=== PATIENT | female | born 1995 | race Asian ===

== ENCOUNTER 2016-12-03 13:26 | Emergency (ER) | payer OTHER ==
[~2016-12-03] VITALS: Ht 162.6 cm; Wt 62.1 kg
[2016-12-03 13:29] VITALS: TEMP 36.7; Ht 162.6 cm; Wt 62.1 kg
[2016-12-03] MEDS ORDERED: SODIUM CHLORIDE 0.9% 1000ML 1,000 ML IV STA (13:44)
[2016-12-03] MEDS ORDERED: MoRPHine SULFATE 4 MG/ML 1 ML CARP\\VIAL IV STA (13:44)
[2016-12-03] MEDS ORDERED: ONDANSETRON INJ 2 MG/ML 2 ML VIAL IV STA (13:44)
--- NOTE | 2016-12-03 14:10 | EMERGENCY ROOM VISIT NOTE ---
History First contact with patient: 13:34 Chief Complaint: ABDOMINAL PAIN Stated Complaint: PAIN IN LWR ABD./BACK PAIN WHEN SITTING History of Present Illness The patient is a 21 year old female who presents to the Emergency Room with complaints of pain in her lower abdomen which started this morning. She reports that after eating breakfast this morning, she experienced abdominal cramping which was severe for approximately 30 minutes. She reports that she took Excedrin with little relief. She states that the pain is now located in her lower abdomen, mostly on the right side. The pain is worse when she is walking, laughing or moving. She states she is currently finishing her menstrual period. She rates the discomfort a 10/10. She denies any urinary symptoms, nausea, vomiting or changes in bowel movements. She denies any history of abdominal surgery. Review of Systems A complete 10-point Review of Systems was discussed with the patient, with pertinent positives and negatives listed in the History of Present Illness. All remaining Review of Systems questions can be considered negative unless otherwise specified. Social History Smoking Status: Never Smoker Current/Historical Medications No Active Prescriptions or Reported Meds Allergies Coded Allergies: No Known Allergies (Unverified , 12/03/16) Physical Exam Vital Signs Date Time Temp Pulse Resp B/P Pulse Ox O2 Delivery O2 Flow Rate FiO2 12/03/16 18:14 63 18 127/80 100 12/03/16 16:58 62 18 125/82 100 Room Air 12/03/16 15:03 71 18 113/79 99 Room Air 12/03/16 13:29 36.7 63 18 121/75 100 Room Air Physical Exam VITALS: Vitals are noted on the nurse's note and reviewed by myself. Vital signs stable. GENERAL: This is a 21-year-old female, in no acute distress, nondiaphoretic, well-developed well-nourished. SKIN: Capillary reflex less than 2 seconds. HEENT: Normocephalic. PERRLA. EOMI. Nares patent. Mucous membranes moist. Neck is supple without nuchal rigidity. HEART: Regular rate and rhythm without murmurs gallops or rubs. LUNGS: Clear to auscultation bilaterally without wheezes, rales or rhonchi. ABDOMEN: The abdomen is nondistended with normal abdominal contour. Positive bowel sounds x 4. The abdomen is soft with moderate tenderness of the right lower quadrant. Positive Rovsing sign. No guarding or rebound tenderness. NEURO: Patient was alert and oriented to person place and time. Medical Decision & Procedures ER Provider Diagnostic Interpretation: ULTRASOUND OF THE APPENDIX FINDINGS: Real-time, grayscale, and color flow sonography of the right lower quadrant was performed to assess for acute appendicitis. The appendix was not discretely visualized. No inflammatory changes or free fluid are seen in the right lower quadrant. No lymphadenopathy was seen. IMPRESSION: Nonvisualization of the appendix. Note that this does not exclude acute appendicitis. CT OF THE ABDOMEN AND PELVIS WITH CONTRAST FINDINGS: There is no pneumatosis, free air or portal venous gas. The liver, spleen, adrenal glands, kidneys and pancreas are normal. There is no biliary or pancreatic ductal dilatation. There is no hydronephrosis. The caliber and wall thickness of small and large bowel are normal. The appendix is normal. There is a small amount of fluid within the pelvis. There is no evidence for a bowel obstruction. No lymphadenopathy is present. Skeletal structures are unremarkable. IMPRESSION: 1. Normal appendix. 2. Small amount of fluid within the pelvis. 3. No bowel obstruction. Laboratory Results 12/03/16 14:28 Red Blood Count 4.62, Mean Corpuscular Volume 91.1, Mean Corpuscular Hemoglobin 33.1, Mean Corpuscular Hemoglobin Concent 36.3, Mean Platelet Volume 10.6, Neutrophils (%) (Auto) 83.5, Lymphocytes (%) (Auto) 10.0, Monocytes (%) (Auto) 5.4, Eosinophils (%) (Auto) 0.8, Basophils (%) (Auto) 0.1, Neutrophils # (Auto) 10.63, Lymphocytes # (Auto) 1.27, Monocytes # (Auto) 0.68, Eosinophils # (Auto) 0.10, Basophils # (Auto) 0.01 12/03/16 14:28 Test 12/03/16 14:17 12/03/16 14:28 Urine Color YELLOW Urine Appearance CLEAR (CLEAR) Urine pH 6.5 (4.5-7.5) Urine Specific [place] 1.003 (1.000-1.030) Urine Protein NEG (NEG) Urine Glucose (UA) NEG (NEG) Urine Ketones NEG (NEG) Urine Occult Blood TRACE (NEG) Urine Nitrite NEG (NEG) Urine Bilirubin NEG (NEG) Urine Urobilinogen NEG (NEG) Urine Leukocyte Esterase NEG (NEG) Urine WBC (Auto) 1-5 /hpf (0-5) Urine RBC (Auto) 0-4 /hpf (0-4) Urine Hyaline Casts (Auto) 0 /lpf (0-5) Urine Epithelial Cells (Auto) 10-20 /lpf (0-5) Urine Bacteria (Auto) NEG (NEG) Urine Test NEG (NEG) White Blood Count 12.71 K/uL (4.8-10.8) Red Blood Count 4.62 M/uL (4.2-5.4) Hemoglobin 15.3 g/dL (12.0-16.0) Hematocrit 42.1 % (37-47) Mean Corpuscular Volume 91.1 fL (80-100) Mean Corpuscular Hemoglobin 33.1 pg (25-34) Mean Corpuscular Hemoglobin Concent 36.3 g/dl (32-36) Platelet Count 213 K/uL (130-400) Mean Platelet Volume 10.6 fL (7.4-10.4) Neutrophils (%) (Auto) 83.5 % Lymphocytes (%) (Auto) 10.0 % Monocytes (%) (Auto) 5.4 % Eosinophils (%) (Auto) 0.8 % Basophils (%) (Auto) 0.1 % Neutrophils # (Auto) 10.63 K/uL (1.4-6.5) Lymphocytes # (Auto) 1.27 K/uL (1.2-3.4) Monocytes # (Auto) 0.68 K/uL (0.11-0.59) Eosinophils # (Auto) 0.10 K/uL (0-0.5) Basophils # (Auto) 0.01 K/uL (0-0.2) RDW Standard Deviation 43.1 fL (36.4-46.3) RDW Coefficient of Variation 13.0 % (11.5-14.5) Immature Granulocyte % (Auto) 0.2 % Immature Granulocyte # (Auto) 0.02 K/uL (0.00-0.02) Anion Gap 8.0 mmol/L (3-11) Est Creatinine Clear Calc Drug Dose 98.2 ml/min Estimated GFR () 126.1 Estimated GFR (Non- 108.8 BUN/Creatinine Ratio 15.8 (10-20) Calcium Level 8.9 mg/dl (8.5-10.1) Total Bilirubin 0.7 mg/dl (0.2-1) Aspartate Amino Transf (AST/SGOT) 18 U/L (15-37) Alanine Aminotransferase (ALT/SGPT) 25 U/L (12-78) Alkaline Phosphatase 58 U/L (45-117) Total Protein 8.1 gm/dl (6.4-8.2) Albumin 4.1 gm/dl (3.4-5.0) Globulin 4.0 gm/dl (2.5-4.0) Albumin/Globulin Ratio 1.0 (0.9-2) Lipase 164 U/L (73-393) Medications Administered Medications (Trade) Dose Ordered Sig/Ashkan Route Start Time Stop Time Status Last Admin Dose Admin Sodium Chloride (Nss 1000ml) 1,000 ml @ 999 mls/hr Q1H1M STAT IV 12/03/16 13:44 12/03/16 14:44 DC 12/03/16 14:29 999 MLS/HR Ondansetron HCl (Zofran Inj) 4 mg NOW STAT IV 12/03/16 13:44 12/03/16 13:50 DC 12/03/16 14:53 4 MG Morphine Sulfate (MoRPHine SULFATE INJ) 4 mg NOW STAT IV 12/03/16 13:44 12/03/16 13:50 DC 12/03/16 14:54 4 MG Medical Decision Differential diagnosis includes appendicitis, gastroenteritis, colitis, ovarian cyst, ovarian torsion, PID, among others. The patient was evaluated as above. Labs were drawn and IV access was obtained. Imaging studies were performed and read by radiology as above. The patient was medicated with 1 liter normal saline solution, 4 mg Zofran and 4 mg morphine. The patient was reassessed multiple times during their stay in the emergency department and remained in stable condition. The patient is a and 21-year-old female who presents today complaining of right lower quadrant abdominal pain. Labs revealed a mild leukocytosis. No concerning anemia or electrolyte abnormalities. Urinalysis was not suggestive of infection. Urine was negative. CT of the abdomen and pelvis was performed and showed no acute findings within the abdomen. I did discuss performing a pelvic exam with the patient, but she states she is not sexually active and has never had a pelvic exam. Therefore, I am not suspicious of PID. The patient was informed of findings and conservative measures were discussed. She was instructed to follow-up with her primary care provider and return here if she has any worsening of her current condition or new/concerning symptoms. Based on the patient's presentation, lab results, and imaging studies, I feel the patient is stable for outpatient treatment. The patient's case was reviewed with Dr. Molina, ED attending physician, who agreed with my assessment and treatment plan. Discharge instructions were reviewed with the patient. The patient verbalized understanding of my assessment and treatment plan and was discharged home in good condition. Impression Primary Impression: Right lower quadrant abdominal pain Departure Information Dispostion Home / Self-Care Condition GOOD Prescriptions No Active Prescriptions or Reported Meds Referrals No Doctor, Assigned (PCP) [facility] Patient Instructions [facility] Additional Instructions You have been treated in the Emergency Department your Abdominal Pain. Laboratory results and imaging studies have ruled out any emergent causes for your abdominal pain which would warrant admission or surgery. Ibuprofen: Take 600 mg every 6 hours as needed for abdominal pain. This is an [id number] medication. For pain control, you can also use the following emdz-wkz-[id number] medicines (if >12 yo): - Regular strength (325mg/tab) Tylenol (acetaminophen) 2 tabs every 4-6 hours as needed. Do not exceed 12 tablets in a 24 hour period. Avoid taking more than 4 grams (4000 mg) of Tylenol per day. This includes any other sources of acetaminophen you may take on a regular basis. Drink plenty of water and stay well hydrated. Follow-up with [facility] within 2 days for further evaluation of your symptoms. Return to the emergency department if your symptoms persist despite treatment plan outlined above or if the following symptoms occur: Fevers, vomiting, worsening pain or any other new/concerning symptoms.
[2016-12-03 14:46] LABS: BASO % 0.1 %; BASO ABS # 0.01 K/uL (0-0.2); COMPLETE YES; EOS % 0.8 %; HEMATOCRIT 42.1 % (37-47); IG% 0.2 %; LYMPH ABS # 1.27 K/uL (1.2-3.4); MEAN CELL VOLUME 91.1 fL (80-100); MEAN CORPUSCULAR HEMOGLOBIN 33.1 pg (25-34); MEAN CORPUSCULAR HGB CONC 36.3 g/dl (32-36); MEAN PLATELET VOLUME 10.6 fL (7.4-10.4); MONO % 5.4 %; NEUT % 83.5 %; PLATELET COUNT 213 K/uL (130-400); RED BLOOD COUNT 4.62 M/uL (4.2-5.4); WHITE BLOOD COUNT 12.71 K/uL (4.8-10.8)
[2016-12-03 15:08] LABS: BUN/CREATININE RATIO 15.8 (10-20); CALCIUM 8.9 mg/dl (8.5-10.1); CREATININE 0.77 mg/dl (0.60-1.20); POTASSIUM 3.7 mmol/L (3.5-5.1)
[2016-12-03 15:11] LABS: URINE APPEARANCE CLEAR (CLEAR); URINE BILIRUBIN NEG (NEG); URINE COLOR YELLOW; URINE NITRITE NEG (NEG); URINE PH 6.5 (4.5-7.5); URINE SPECIFIC GRAVITY 1.003 (1.000-1.030); UROBILINOGEN NEG (NEG); ZZUR CULT IF INDIC CLEAN CATCH NO
[2016-12-03 15:13] LABS: MANUAL MICROSCOPIC REQUIRED? NO; REVIEW REQ? NO
--- NOTE | 2016-12-03 15:43 | DIAGNOSTIC IMAGING REPORT ---
ULTRASOUND OF THE APPENDIX CLINICAL HISTORY: Right lower quadrant abdominal pain. COMPARISON STUDY: No priors. FINDINGS: Real-time, grayscale, and color flow sonography of the right lower quadrant was performed to assess for acute appendicitis. The appendix was not discretely visualized. No inflammatory changes or free fluid are seen in the right lower quadrant. No lymphadenopathy was seen. IMPRESSION: Nonvisualization of the appendix. Note that this does not exclude acute appendicitis. Electronically signed by: Maciej Prince M.D. 12/03/2016 3:41 PM Dictated Date/Time: 12/03/2016 3:41 PM
[2016-12-03] MEDS ORDERED: OPTIRAY 320 IV PRN (16:15)
--- NOTE | 2016-12-03 17:01 | DIAGNOSTIC IMAGING REPORT ---
CT OF THE ABDOMEN AND PELVIS WITH CONTRAST CLINICAL HISTORY: Right lower quadrant abdominal pain. COMPARISON STUDY: Right lower quadrant ultrasound performed earlier today. TECHNIQUE: Following IV administration of 122 mL of [id number], axial images of the abdomen and pelvis were obtained from the lung bases to the proximal femurs. Images were reviewed in the axial, sagittal, and coronal planes. IV contrast was administered without complication. Oral contrast was administered. CT DOSE: 285.26 mGy.cm FINDINGS: There is no pneumatosis, free air or portal venous gas. The liver, spleen, adrenal glands, kidneys and pancreas are normal. There is no biliary or pancreatic ductal dilatation. There is no hydronephrosis. The caliber and wall thickness of small and large bowel are normal. The appendix is normal. There is a small amount of fluid within the pelvis. There is no evidence for a bowel obstruction. No lymphadenopathy is present. Skeletal structures are unremarkable. IMPRESSION: 1. Normal appendix. 2. Small amount of fluid within the pelvis. 3. No bowel obstruction. Electronically signed by: Sae Lemos M.D. 12/03/2016 4:59 PM Dictated Date/Time: 12/03/2016 4:55 PM
[2016-12-03 18:14] VITALS: BP 127/80; PULSE 63; O2SAT 100
== END 2016-12-03 18:15 | disposition home or self-care (01) ==
LOC: C.EDB 13:28
DX: R10.31 Right lower quadrant pain (principal)